=== PATIENT | male | born 1955 | race Caucasian/White ===

== ENCOUNTER 2016-06-17 20:02 | Inpatient (IN) | payer OTHER ==
[~2016-06-17] VITALS: Ht 170.2 cm; Wt 92.1 kg
--- NOTE | ~2016-06-17 | H ---
[facility] [place] [address] HISTORY AND PHYSICAL Name: MIKE KELLEY Room #: 424-P [facility] IN M.R.#: [id number] Admission: 06/17/16 Attend Phys: Bobbi Lamas Discharge: 06/22/16 Date of : 53 Report #: [id number] THIS REPORT FOR: //name// CC: Rogers Guan ATTENDING PHYSICIAN: Torsten Guan MD PRIMARY CARE PHYSICIAN: Duran Hinson DO CHIEF COMPLAINT: Cough, left-sided chest pain, nausea, vomiting, and diarrhea. HISTORY OF PRESENT ILLNESS: The patient is a 60-year-old male who has not been feeling well for about a week. He was in [place], visiting family over [place] and for the last week, he has been having nausea, vomiting, and diarrhea. He has had at least 5-6 episodes of diarrhea per day. He has been vomiting multiple times throughout the day, although he denies any vomiting today. He overall has had decreased appetite and has not been eating well for about 4-5 days. He says he was still drinking water. He has also developed some increasing shortness of breath and left-sided chest pain. The chest pain is worse with taking deep breath. The pain radiates into his left upper quadrant of the abdomen. He also has been coughing frequently and produced some yellowish colored sputum, but at times, he has seen some dark blood in the sputum. He went to an urgent care in [place] and was diagnosed with pneumonia and put on a Z-Hector last week. He just finished the Z-Hector today. He did drive to [place] in back. He does have a history of DVT, but has been off anticoagulation for many years. Since arrival in the ER, he has been hypotensive, although he has remained alert and oriented. Despite being feeling so poorly, he has continued to take his lisinopril daily. He denies any history of kidney problems. He has been receiving fluid boluses in the ER and has just been started on a small amount of Levophed. PAST MEDICAL HISTORY: Hypertension, coronary artery disease with prior [place], hyperlipidemia, depression, PVD, and DVT. PAST SURGICAL HISTORY: Bilateral iliac bypass with bilateral iliac stents, CABG x3 vessels in 2000, left subclavian stent placement and angioplasty, left femur fracture repair followed by a dino removal and left carotid endarterectomy. ALLERGIES: None. HOME MEDICATIONS: Lisinopril 20 mg daily and aspirin 325 mg daily. SOCIAL HISTORY: The patient smokes about half a pack of cigarettes per day. He has been smoking for at least 30 years. He drinks beer daily up to 2-3 cans per [facility] [address] [place] [address] HISTORY AND PHYSICAL Name: MIKE KELLEY Room #: 424-P [facility] IN ..#: [id number] Admission: 06/17/16 Attend Phys: Bobbi Lamas Discharge: 06/22/16 Date of : 53 Report #: [id number]. He denies any drug use. FAMILY HISTORY: Noncontributory. REVIEW OF SYSTEMS: Twelve-point review of systems was reviewed with the patient, otherwise negative unless stated in the HPI. PHYSICAL EXAMINATION: GENERAL: The patient is an alert male, in no acute distress. VITAL SIGNS: Temperature is 36.9, heart rate is 82, respirations 22, blood pressure is 70/57, and oxygen 97% on room air. HEENT: PERRLA. Sclerae is nonicteric. Oral mucosa is pink and dry. Tongue, no saliva. He is edentulous. NECK: Supple, no JVD noted. CARDIOVASCULAR: Normal S1 and S2. No murmurs, rubs or gallops. RESPIRATORY: Breath sounds are clear in bilateral upper lobes. He is diminished in the left lower lobe and he is tender to palpation on the left anterior chest wall. Breathing is nonlabored. ABDOMEN: Soft and diffusely tender, but is worse along the left side in the left upper and lower quadrants. Bowel sounds are hyperactive. VASCULAR: No edema noted. Pedal pulses are 2+. GENITOURINARY: He just had a Mendosa catheter placed. He is draining a small amount of jose angel urine. NEUROLOGIC: The patient is alert. He is oriented x3. Speech is clear. He does answer questions appropriately and is following commands. No focal weakness noted. SKIN: Intact. No rashes or lesions. His face is very flushed. LABORATORY AND DIAGNOSTIC DATA: WBC is 9.7, hemoglobin 14.2, and platelets 265. Sodium 126, potassium 3.5, BUN 46, creatinine 3.6, and glucose 109. Lactic acid is 1.7, AST 57, and ALT 110. Troponins negative. BNP 304. Albumin 2.2. INR 1.1 and D-dimer 3.17. EKG showing sinus rhythm with PAC. Chest x-ray shows a mass-like density in the left lower lobe. If infectious presentation, pneumonia is a consideration. Followup chest radiographs to be performed. CT of the chest, abdomen, and pelvis done without contrast shows multifocal infiltrate concerning for pneumonia, follow up to resolution. There is also diffuse colonic wall thickening and nondilated fluid filled loops of small and large bowel, correlate for enterocolitis. V/Q scan shows high probability for pulmonary embolus with large perfusion defects in the left lower lobe as well as a defect in the left upper lobe. These findings may also represent pulmonary infarct. ASSESSMENT AND PLAN: 1. Pulmonary embolism versus multifocal pneumonia. Interestingly, the patient is not hypoxic or tachycardic. He is afebrile without leukocytosis. Pulmonary embolism cannot be completely ruled out based on the V/Q scan findings. We will [facility] [address] [place] [address] HISTORY AND PHYSICAL Name: MIKE KELLEY Room #: 424-P [facility] IN [facility].#: [id number] Admission: 06/17/16 Attend Phys: Bobbi Lamas Discharge: 06/22/16 Date of : 53 Report #: [id number] need to continue treatment with heparin drip. This is provoked as he recently drove from [place]. We will check venous Dopplers of the lower extremities to rule out deep venous thrombosis. As far as pneumonia, continue with Levaquin and Zosyn. Infectious disease has been consulted by the ER. Follow blood cultures and try to obtain a sputum culture and pulmonary is consulted. 2. Acute renal failure. The patient is very dehydrated likely due to recent nausea, vomiting, and diarrhea. Continue with aggressive IV fluids and follow labs. Renal has been consulted. 3. Hypotension. Interestingly, the patient has a history of a left subclavian stent and steal syndrome. His blood pressures are varying from the right arm to the left arm. On the right arm, he is significantly higher than the left. Based on his hypotension, he has already received a total of 3 liters of IV fluids and his blood pressure has been stable. His blood pressures have been improving. He is Levophed. 4. Hyponatremia, likely due to dehydration. Continue with IV fluids and follow labs. 5. Enterocolitis. The patient has had recent nausea, vomiting and diarrhea. We will check stool for Clostridium difficile. Continue antiemetics. Continue with hydration and add Flagyl. 6. Alcohol use. We will monitor for any signs of withdrawal as does drink beer daily. 7. Mild transaminitis, possibly due to alcohol abuse. CT of the abdomen did not show any gallbladder thickening or cholelithiasis. 8. Deep venous thrombosis prophylaxis. Continue with heparin drip. We will continue to follow the patient closely throughout the hospitalization and make changes based on clinical status. <ELECTRONICALLY SIGNED> By: CAN Wang 06/25/16 0646 0431 0538 CAN Wang /nt
--- NOTE | ~2016-06-17 | EKG ---
[address] [address] ELECTROCARDIOGRAM REPORT Name: MIKE KELLEY Room #: 245-P ADM IN M.R.#: [id number] Admission: 06/17/16 Attend Phys: Bobbi Lamas Discharge: Date of : 53 Report #: [id number] THIS REPORT FOR: //name// [facility] ED Test Date: 2016-06-17 Test Time: 20:11:01 Pat Name: MIKE KELLEY Department: Room: [facility] Gender: M Pastry Baker: JENIFFER : 1955 Requested By: Anastasia Flowers Order Number: [id number] MD: Samir Delgadillo Measurements Intervals [place] Rate: 91 P: 27 MO: 143 QRS: 31 QRSD: 104 T: 8 QT: 376 QTc: 463 Interpretive Statements Sinus rhythm Atrial premature complex Probable left atrial enlargement No previous ECG available for comparison Electronically Signed On 06-18-2016 11:17:04 KITCHEN ASSISTANT by Samir Delgadillo [email or web address] <ELECTRONICALLY SIGNED> By: Samir Delgadillo MD 06/18/16 1117 10 10 Samir Delgadillo MD /GRAZYNA
--- NOTE | ~2016-06-17 | HC ---
[facility] [place] [address] CONSULTATION Name: MIKE KELLEY Room #: 424-P [facility] IN M.R.#: [id number] Admission: 06/17/16 Attend Phys: Bobbi Lamas Discharge: 06/22/16 Date of : 53 Report #: [id number] THIS REPORT FOR: //name// CC: Rogers Hinson REASON FOR CONSULTATION: Septic shock, pneumonia. IMPRESSION: 1. Pulmonary infiltrate, pneumonia versus pulmonary embolus versus vasculitis. 2. Acute renal failure. 3. Possible pulmonary embolus. 4. Metabolic acidosis. 5. Loose stools with diffuse colonic wall thickening. 6. Elevated D-dimer. 7. Elevated LFTs. 8. History of left carotid endarterectomy with patch angioplasty. 9. History of bypass 2000. 10. History of tobacco use. PLAN: 1. Difficult to distinguish on V/Q scan versus CT whether this is pneumonia and pulmonary embolus. Treat as both. We will check venous Doppler and echocardiogram. In this situation, would not use TPA. 2. With hypertension, we will use sepsis protocol, increase fluids, monitor closely. 3. Usual ICU protocol. 4. Smoking cessation. 5. DuoNeb. 6. ID to see. We will also send stool cultures off. We will follow closely with you. HISTORY OF PRESENT ILLNESS: A 60-year-old male, has been in [place], went to a clinic there, treated as pneumonia with Z-Hector, has had left pleuritic chest pain, was found to be hypotensive here, fluids given, PICC line placed and currently in ICU. The patient relates he feels somewhat better. Mendosa catheter placed. Has not been urinating much, but does have some fluid in catheter now. HOME MEDICATIONS: Include lisinopril, aspirin, Lipitor, Plavix. PAST SURGICAL HISTORY: Includes left carotid and CABG. ALLERGIES: No known. SOCIAL HISTORY: Positive tobacco, positive ETOH. Negative drugs of abuse. [facility] [address] [place] [address] CONSULTATION Name: MIKE KELLEY Room #: [address] [place] [address].#: [id number] Admission: 06/17/16 Attend Phys: Bobbi Lamas Discharge: 06/22/16 Date of : 53 Report #: [id number] FAMILY HISTORY: Colon CA, lung CA. REVIEW OF SYSTEMS: Cough, hemoptysis, discolored sputum, some shortness of breath, abdominal pain, loose stools, no edema, history of DVT, subclavian steal, peripheral vascular disease, hypertension, coronary artery disease, and dyslipidemia. PHYSICAL EXAMINATION: VITAL SIGNS: Temperature in ER 98.4, pulse 82, respirations 24, BP 67/46, currently on Levophed. Awake, alert, flushed. NECK: Trachea midline. Thyroid not enlarged. LUNGS: Coarse bilaterally, left greater than right. HEART: Regular. ABDOMEN: Bowel sounds present. Mildly tender on the left. EXTREMITIES: Show no edema or calf tenderness. LABORATORY DATA: A pH 7.425, pCO2 of 28, pO2 of 80, bicarbonate 18 on room air, lactate 1.24. ProBNP 304. V/Q scan was interesting, perfusion defect on left, mismatch with ventilation. CT chest showed multifocal infiltrate, diffuse colonic wall thickening. INR 1.1. D-dimer 3.17, BUN 46, creatinine 3.6, total bilirubin 1.1, SGPT 110. White count 97, hemoglobin 14.2, platelets 265, bands 1. Forty-five minutes critical care time. <ELECTRONICALLY SIGNED> By: Rogers Kelly MD 06/24/16 1832 0056 0814 Rogers Kelly MD /nt
--- NOTE | ~2016-06-17 | HC ---
[facility] [place] [address] CONSULTATION Name: MIKE KELLEY Room #: 424-P [facility] IN ..#: [id number] Admission: 06/17/16 Attend Phys: Bobbi Lamas Discharge: Date of : 53 Report #: [id number] THIS REPORT FOR: //name// CC: Rogers Hinson DATE OF SERVICE: 06/18/2016 REASON FOR CONSULTATION: Acute kidney injury. HISTORY OF PRESENT ILLNESS: This 60-year-old male has a known history of diffuse atherosclerotic cardiovascular disease. He underwent coronary artery bypass surgery in 2000. He has subsequently undergone numerous additional vascular procedures including carotid endarterectomy in 08/[address] Jones and multiple endovascular stenting procedures including bilateral iliac stents, left subclavian stent. He has had a previous left femur fracture. He has longstanding hypertension, chronic mood disorder, dyslipidemia. ALLERGIES: He has no known allergies. MEDICATIONS ON ADMISSION: Reported as lisinopril 20 mg daily and aspirin 325 mg daily. PERSONAL AND SOCIAL HISTORY: The patient continues to smoke one half pack of cigarettes daily. He drink 2-3 beers per day by report. There is no history of substance abuse. FAMILY HISTORY: Negative for renal disease. REVIEW OF SYSTEMS: Remarkable for the absence of shortness of breath, productive cough, hemoptysis, chest pain, palpitations, nausea. He has had significant diarrhea over the course of the last week and poor oral intake. PHYSICAL EXAMINATION: GENERAL: Reveals a well-developed, well-nourished male appearing his stated age, in no acute distress. VITAL SIGNS: Blood pressure 102/64, pulse 78, respirations 25. SKIN: Warm and dry. Mucous membranes are on the dry side. Turgor is diminished. There are no neck veins visible. HEENT: The head is normocephalic and atraumatic. The sclerae are white and conjunctivae are not injected. There is full range of extraocular motion. NECK: Supple. LUNGS: Samuel reveal scattered rhonchi bilaterally. CARDIOVASCULAR: Reveals a regular rate and rhythm without rub. [facility] [address] [place] [address] CONSULTATION Name: WARRENMIKE H Room #: 424-P [facility] IN .R.#: [id number] Admission: 06/17/16 Attend Phys: Bobbi Lamas Discharge: Date of : 53 Report #: [id number] ABDOMEN: Soft, nontender without guarding, rebound, mass or organomegaly. NEUROLOGIC: Reveals the patient to be alert and cooperative with a nonfocal exam. DIAGNOSTIC DATA: Available at this time include sodium 135, potassium 3.8, chloride 103, CO2 20, BUN 32, creatinine 1.9, glucose 178, calcium 6.9, lipase 904, albumin 1.5. INR 1.2. White blood cell count 6900, hemoglobin 12.2, hematocrit 35.8, platelet count 206,000, 42 bands, 4 lymphocytes, 7 monocytes, 1 eosinophil, 45 polys. Urinalysis reveals clear yellow urine, specific gravity 1.025, pH 5, negative for glucose, ketones, protein, trace blood. Arterial blood gases on initial presentation, pH 7.42, pCO2 28, pO2 80. ASSESSMENT: 1. Renal insufficiency with a creatinine of 3.6 on presentation, which has fallen sequentially to a current value of 1.9. This supports a prerenal etiology for his findings as suggested by his history and current physical examination. We will continue isotonic hydration and follow serial laboratory studies. CT scan of the abdomen and pelvis revealed multifocal pulmonary infiltrates suggestive of pneumonia as well as diffuse colonic wall thickening suggestive of enterocolitis. The kidneys appeared normal on scan with no evidence of hydronephrosis or nephrolithiasis. 2. Pneumonia. 3. Rule out pulmonary emboli. 4. Diffuse atherosclerosis. 5. Ongoing tobacco abuse. PLAN: As outlined above. I discussed with the patient the importance of stopping smoking. Please see orders. <ELECTRONICALLY SIGNED> By: Boby Coleman MD 06/21/16 0703 0920 1255 Boby Coleman MD /nt
--- NOTE | ~2016-06-17 | HC ---
[facility] [address] [place] [address] CONSULTATION Name: MIKE KELLEY Room #: 424-P ADM IN M.R.#: [id number] Admission: 06/17/16 Attend Phys: Bobbi Lamas Discharge: Date of : 53 Report #: [id number] THIS REPORT FOR: //name// CC: Rogers Hinson REASON FOR CONSULTATION: I was asked to evaluate the patient concerning sepsis, pneumonia, pulmonary embolus and colitis. HISTORY OF PRESENT ILLNESS: The patient is a 60-year-old with underlying history of coronary artery disease and peripheral vascular disease who was in [place] visiting family for the last 3 weeks. Five days ago noticed a left-sided chest discomfort associated with some shortness of breath and cough with hemoptysis. He was seen in the outpatient clinic and placed on azithromycin. Subsequently, developed worsening diarrhea associated with some nausea and vomiting and persistent pain in his left chest. He drove back yesterday and presented to the Emergency Room. There, he was hypotensive. Imaging studies showed pulmonary infiltrates in both lungs. I discussed the case with Emergency Room physician. He was given IV fluids, started on Levophed drip, placed on IV antibiotics after cultures were obtained. Overnight, he has been afebrile and hemodynamically improved. He remains on room air with adequate oxygen saturation. He smokes cigarettes, moderate alcohol intake daily, unemployed, no HIV risk factors. ALLERGIES: None. MEDICATIONS: As noted on his MAR with home medications of lisinopril and aspirin. PAST MEDICAL HISTORY: Hypertension, coronary artery disease, peripheral vascular disease, hyperlipidemia, depression. Unclear if he has had a DVT in the past. He was not sure when I questioned him on this. He has had bilateral iliac bypass and iliac stents, coronary artery bypass grafting, left subclavian stent, left carotid endarterectomy, left femur fracture. FAMILY HISTORY: Cancer. SOCIAL HISTORY: Smoker, no tuberculosis exposure, moderate alcohol intake. REVIEW OF SYSTEMS: Noted above with no arthritis, rash, dysuria or frequency. PHYSICAL EXAMINATION: VITAL SIGNS: He is afebrile, CVP of 6, MAP of 79, pulse 87. Systolic blood pressure has been over 100. He is off Levophed drip, remains on a heparin drip. HEENT: Unremarkable. [address] [address] CONSULTATION Name: MIKE KELLEY Room #: [address] [place] [address] [place] .R.#: [id number] Admission: 06/17/16 Attend Phys: Bobbi Lamas Discharge: Date of : 53 Report #: [id number] NECK: Supple. LUNGS: Crackles in the left base posteriorly. No rub. HEART: Regular without murmur. ABDOMEN: Soft, diffusely tender, no hepatosplenomegaly or mass. EXTREMITIES: Unremarkable. NEUROLOGIC: Nonfocal. LABORATORY STUDIES: Sodium 135, potassium 3.8, bicarbonate 20, creatinine 1.9 down from 3.6 on admission, blood glucose 178, AST 43, ALT 83, bilirubin 1, albumin 1.5, lactate normal, troponin negative. INR 1.2. White count 6.9, hemoglobin 12, platelet count 206,000, 42% bands. C. diff by PCR is pending. Procalcitonin 1. ABG on room air pO2 80, pCO2 27, pH 7.42. Blood, urine and sputum cultures are pending. Reviewed his imaging studies including CT scan of the chest and abdomen which showed multifocal infiltrate, pneumonia, mostly peripheral, diffuse colonic wall thickening. VQ scan with high probability of pulmonary embolus. Lower extremity venous ultrasound, no evidence of DVT. IMPRESSION: A 60-year-old with a history of peripheral vascular disease, coronary artery disease, has developed bilateral more peripheral pulmonary infiltrates with a high probability VQ scan. He has had pleuritic type chest pain along with hemoptysis. He was then placed on antibiotics and now has evidence of colitis. I am suspecting that this is a pulmonary process with emboli versus vasculitic change. I agree with anticoagulation and vasculitic workup. I would expect primary bacterial pneumonia less likely given the patient had no prodrome of cough, fever or chills. He now presents dehydrated and with colitis. PLAN: Would recommend stool studies for bacteria culture, C. difficile PCR, await blood and sputum cultures. Continue fluid resuscitation. We will adjust his antibiotics and continue workup for vasculitis and hypercoagulable state. <ELECTRONICALLY SIGNED> By: Quentin Chairez MD 06/21/16 1022 1107 1843 Quentin Chairez MD /nt
--- NOTE | ~2016-06-17 | 2DMMODE ---
[facility] [place] [address] 2 D/M-MODE ECHOCARDIOGRAM Name: MIKE KELLEY Room #: 245-P [facility]#: [id number] Admission: 06/17/16 Attend Phys: Bobbi Oglesby Discharge: Date of : 53 Date of Service: 06/18/1618 Report #: [id number] THIS REPORT FOR: //name// Transthoracic Echocardiography Ordering physician: Rogers Kelly Referring physician: Rogers Kelly [employer] Tavern Keeper: Zeny Murdock Indications/History: Pulmonary HTN, Short of breath, chest pain. Hx: HTN, NE, CABG, tobacco abuse. BP: 110 / HR: 84bpm Height: 67in Weight: 219.5lb 65 Study data: M-mode, complete 2D, complete spectral Doppler, and color Doppler. Location: Bedside. Routine. Image quality was fair. Intravenous contrast (Definity) was administered. Suboptimal apical images. Poor acoustic windows due to body habitus and lung artifact. 2D measurements Normal Normal LVID ED 45.6mm 36-57 IVS ED 9.5mm 6-11 LVID ES 31.6mm 23-40 LVPW ED 10.1mm 6-11 LA volume 20ml/m2 16-28 AoRoot diam 34.7mm 21-37 index ED LVOT diameter 22mm 18-23 Findings: Left ventricle: The cavity size was normal. Wall thickness was normal. Systolic function was normal. The estimated ejection fraction was in the range of 55% to 60%. Wall motion abnormalities are not suspected. Right ventricle: Poorly visualized. The cavity size was normal. Systolicappears normal. Right atrium: The atrium was normal in size. Left atrium: The atrium was normal in size. Volume index: 20ml/m2 (S). Aortic valve: Mildly thickened leaflets. Doppler: There [facility] [address] [place] [address] 2 D/M-MODE ECHOCARDIOGRAM Name: MIKE KELLEY Room #: 245-P [facility] IN [place].#: [id number] Admission: 06/17/16 Attend Phys: Bobbi Greenberg Reny Discharge: Date of : 53 Date of Service: 06/18/16 0818 Report #: [id number] was no stenosis. No regurgitation. Peak velocity: 156.3cm/s (S). Mitral valve: Structurally normal valve. Doppler: There was no evidence for stenosis. No regurgitation. Peak E-wave velocity: 75.3cm/s. Peak gradient: 2.3mm Hg (D). Peak A-wave velocity: 95.8cm/s. Tricuspid valve: Structurally normal valve. Doppler: There was no evidence for stenosis. Mild regurgitation. Regurgitant peak velocity: 305.8cm/s. Peak RV-RA gradient: 37mm Hg (S). Pulmonic valve: Structurally normal valve. Doppler: There was no evidence for stenosis. Trivial regurgitation. Pericardium: There was no pericardial effusion. Aorta: Aortic root: The aortic root was normal in size. Pulmonary artery: Systolic pressure was estimated to be 37mm Hg plus the right atrial pressure. Diastolic function: Doppler parameters are consistent with abnormal left ventricular relaxation (grade 1 diastolic dysfunction). Systemic veins: Inferior vena cava: Poorly visualized. Conclusions 1. Left ventricle: The cavity size was normal. Wall thickness was normal. Systolic function was normal. The estimated ejection fraction was in the range of 55% to 60%. 2. Aortic valve: Mildly thickened leaflets. No regurgitation. 3. Mitral valve: Structurally normal valve. 4. Pulmonic valve: Trivial regurgitation. 5. Tricuspid valve: Mild regurgitation. 6. Pulmonary arteries: Systolic pressure was estimated to be 37mm Hg plus the right atrial pressure. <ELECTRONICALLY SIGNED> By: Sammy Joiner MD 06/18/161599 0818 99 Sammy Joiner MD /adair
[~2016-06-17 20:02] MED LIST: ASPIRIN325 PO; ATORVASTATIN CA40 MG PO; BAYER ASPIRIN325 M1 PO; LOPRESSOR25 PO; NOHOMEMEDICATIONS; PLAVIX 75 MG TA75 MG PO; ZOCOR 20 MG TAB20 M1 PO
[2016-06-17 20:03] VITALS: BP 70/57
[2016-06-17] MEDS ORDERED: LISINOPRIL20 MG PO (20:07)
[2016-06-17 20:24] LABS: HEMATOCRIT 41.8 % (42.0-52.0); HEMOGLOBIN 14.2 gm/dL (14.0-18.0); MCH 31.3 pg (26.0-34.0); MCV 92.2 fL (80.0-100.0); PLATELET COUNT 265 thou/uL (150-400); RBC 4.53 mil/uL (4.50-6.00); RDW 13.7 % (10.5-14.5); WBC 9.7 thou/uL (4.0-11.0)
[2016-06-17 20:26] LABS: MANUAL DIFF YES
[2016-06-17 20:34] LABS: ANION GAP 11 mmol/L (7-16); BUN 46 mg/dL (7-18); CALCIUM 8.7 mg/dL (8.5-10.1); CHLORIDE 90 mmol/L (98-107); CO2 25 mmol/L (21-32); CREATININE 3.6 mg/dL (0.6-1.3); GLUCOSE 109 mg/dL (70-99); POTASSIUM 3.5 mmol/L (3.5-5.1); SODIUM 126 mmol/L (136-145)
[2016-06-17 20:41] LABS: ABSOLUTE NEUTROPHILS 7.5 thou/uL (1.4-8.2); TOTAL CELL COUNT 100
[2016-06-17 20:42] LABS: ALBUMIN 2.2 g/dL (3.4-5.0); ALKALINE PHOSPHATASE 114 U/L (46-116); DIRECT BILIRUBIN 0.7 mg/dL (<0.1-0.3); SGOT 57 U/L (15-37); SGPT 110 U/L (30-65); TOTAL BILIRUBIN 1.1 mg/dL (<0.1-1.0); TOTAL PROTEIN 6.5 g/dL (6.4-8.2); TROPONIN-I < 0.04 ng/mL (<0.04-0.07)
[2016-06-17 21:50] LABS: APTT 30.7 Seconds (24.5-32.8); INR 1.1; PROTIME 11.6 Seconds (9.3-11.4)
[2016-06-17 22:15] VITALS: BP 66/42
[2016-06-17 23:34] VITALS: BP 60/49
[2016-06-17 23:45] VITALS: BP 59/41
[2016-06-18] VITALS (67 sets, daily range): BP systolic 75–155; BP diastolic 52–126
[2016-06-18 00:27] LABS: ABG SAMPLE TYPE VENOUS; BE(vivo) -9.1 mmol/L (-2 to +3); HCO3 14.5 mmol/L (22.0-26.0); LACTATE 0.88 mmol/L (0.5-2.0); O2(CT) 10.5 mL/dL (15.0-23.0); O2Hb VENOUS 69.5 (65.0-85.0); PO2 VENOUS 38.7 mmHg (35.0-45.0); STICK SITE LINE; sO2 VENOUS 73.6 % (65.0-85.0); tCO2 15.3 mmol/L (24.0-30.0)
[2016-06-18 00:28] LABS: ABG COMMENT VBG #1
[2016-06-18 00:30] LABS: ABG COMMENT ROOM AIR; ABG SAMPLE TYPE ARTERIAL; BE(vivo) -5.2 mmol/L (-2 to +3); HCO3 17.8 mmol/L (22.0-26.0); LACTATE 1.24 mmol/L (0.5-2.0); O2(CT) 17.1 mL/dL (15.0-23.0); O2Hb 94.9 % (92.0-98.0); PCO2 27.7 mmHg (35.0-45.0); PO2 80.2 mmHg (80.0-100.0); STICK SITE R.RADIAL; pH 7.425 (7.360-7.450); sO2 96.3 % (92.0-98.0); tCO2 18.6 mmol/L (24.0-30.0)
[2016-06-18 01:27] LABS: ABG SAMPLE TYPE VENOUS; BE(vivo) -4.8 mmol/L (-2 to +3); HCO3 19.7 mmol/L (22.0-26.0); LACTATE 1.08 mmol/L (0.5-2.0); O2(CT) 10.9 mL/dL (15.0-23.0); O2Hb VENOUS 61.6 (65.0-85.0); PCO2 VENOUS 35.1 mmHg (41.0-51.0); PO2 VENOUS 33.9 mmHg (35.0-45.0); sO2 VENOUS 63.8 % (65.0-85.0); tCO2 20.8 mmol/L (24.0-30.0)
[2016-06-18 01:28] LABS: STICK SITE LINE
[2016-06-18 01:42] LABS: HEMATOCRIT 36.3 % (42.0-52.0); MCHC 32.9 % (28.0-37.0); MCV 94.2 fL (80.0-100.0); PLATELET COUNT 218 thou/uL (150-400); RBC 3.85 mil/uL (4.50-6.00); RDW 13.2 % (10.5-14.5); WBC 8.4 thou/uL (4.0-11.0)
[2016-06-18 01:45] LABS: HEMOGLOBIN 11.9 gm/dL (14.0-18.0)
[2016-06-18 01:46] LABS: MANUAL DIFF YES
[2016-06-18 01:49] LABS: URINE BILIRUBIN 1+ (Negative); URINE BLOOD TRACE (Negative); URINE COLOR YELLOW; URINE GLUCOSE-RANDOM* NEGATIVE (Negative); URINE KETONES NEGATIVE (Negative); URINE NITRITE NEGATIVE (Negative); URINE PROTEIN (DIPSTICK) NEGATIVE (Negative); URINE SPECIFIC GRAVITY 1.025 (1.003-1.035); URINE UROBILINOGEN 0.2 E.U./dl (0.2-1.0)
[2016-06-18 01:55] LABS: ICTOTEST (BILI CONFIRMATORY) Positive (Negative)
[2016-06-18 01:57] LABS: ALBUMIN 1.5 g/dL (3.4-5.0); POTASSIUM 3.3 mmol/L (3.5-5.1); TOTAL PROTEIN 4.7 g/dL (6.4-8.2)
[2016-06-18 01:59] LABS: CALCIUM 6.7 mg/dL (8.5-10.1); CREATININE 2.4 mg/dL (0.6-1.3)
[2016-06-18 02:32] LABS: ABG SAMPLE TYPE VENOUS; BE(vivo) -7.7 mmol/L (-2 to +3); HCO3 16.7 mmol/L (22.0-26.0); LACTATE 0.97 mmol/L (0.5-2.0); O2(CT) 13.5 mL/dL (15.0-23.0); O2Hb VENOUS 73.8 (65.0-85.0); PCO2 VENOUS 31.1 mmHg (41.0-51.0); PO2 VENOUS 41.7 mmHg (35.0-45.0); STICK SITE LINE; sO2 VENOUS 75.5 % (65.0-85.0); tCO2 17.7 mmol/L (24.0-30.0)
[2016-06-18 03:15] LABS: ABSOLUTE NEUTROPHILS 6.7 thou/uL (1.4-8.2); ATYPICAL LYMPHS 1 %; TOTAL CELL COUNT 100
[2016-06-18 03:16] LABS: LARGE PLATELETS RARE
[2016-06-18 03:26] LABS: ABG SAMPLE TYPE VENOUS; BE(vivo) -6.4 mmol/L (-2 to +3); HCO3 18.5 mmol/L (22.0-26.0); LACTATE 0.78 mmol/L (0.5-2.0); O2(CT) 12.5 mL/dL (15.0-23.0); PCO2 VENOUS 34.9 mmHg (41.0-51.0); PO2 VENOUS 38.6 mmHg (35.0-45.0); sO2 VENOUS 70.4 % (65.0-85.0); tCO2 19.6 mmol/L (24.0-30.0)
[2016-06-18 03:27] LABS: STICK SITE LINE
[2016-06-18 04:36] LABS: ABG SAMPLE TYPE VENOUS; BE(vivo) -5.1 mmol/L (-2 to +3); HCO3 19.3 mmol/L (22.0-26.0); LACTATE 0.88 mmol/L (0.5-2.0); O2(CT) 13.5 mL/dL (15.0-23.0); O2Hb VENOUS 73.5 (65.0-85.0); PCO2 VENOUS 34.1 mmHg (41.0-51.0); PO2 VENOUS 41.2 mmHg (35.0-45.0); STICK SITE LINE; sO2 VENOUS 75.8 % (65.0-85.0); tCO2 20.4 mmol/L (24.0-30.0)
[2016-06-18 04:50] LABS: CALCIUM 7.1 mg/dL (8.5-10.1); POTASSIUM 3.6 mmol/L (3.5-5.1)
[2016-06-18 04:52] LABS: HEMATOCRIT 35.8 % (42.0-52.0); HEMOGLOBIN 12.2 gm/dL (14.0-18.0); MCH 31.8 pg (26.0-34.0); MCHC 34.1 % (28.0-37.0); MCV 93.2 fL (80.0-100.0); PLATELET COUNT 214 thou/uL (150-400); RBC 3.84 mil/uL (4.50-6.00); RDW 13.5 % (10.5-14.5); WBC 6.9 thou/uL (4.0-11.0)
[2016-06-18 04:55] LABS: INR 1.2; PROTIME 12.1 Seconds (9.3-11.4)
[2016-06-18 04:58] LABS: MANUAL DIFF YES
[2016-06-18 05:15] LABS: FIBRINOGEN 483.6 mg/dL (210-360)
[2016-06-18 05:32] LABS: ABG COMMENT VBG #6; ABG SAMPLE TYPE VENOUS; BE(vivo) -3.4 mmol/L (-2 to +3); HCO3 21.2 mmol/L (22.0-26.0); LACTATE 0.95 mmol/L (0.5-2.0); O2(CT) 13.3 mL/dL (15.0-23.0); PCO2 VENOUS 36.8 mmHg (41.0-51.0); PO2 VENOUS 40.7 mmHg (35.0-45.0); STICK SITE LINE; sO2 VENOUS 75.3 % (65.0-85.0); tCO2 22.3 mmol/L (24.0-30.0)
[2016-06-18 06:39] LABS: PROMYELOCYTES 1 %; TOTAL CELL COUNT 100; TOXIC GRANULATION 1+
[2016-06-18 08:51] LABS: CALCIUM 6.9 mg/dL (8.5-10.1); CREATININE 1.9 mg/dL (0.6-1.3); POTASSIUM 3.8 mmol/L (3.5-5.1)
[2016-06-18 10:03] LABS: AMYLASE 88 U/L (25-115)
[2016-06-18 10:11] LABS: APTT 73.8 Seconds (24.5-32.8); FIBRINOGEN 601.7 mg/dL (210-360); INR 1.2; PROTIME 12.7 Seconds (9.3-11.4)
[2016-06-18 13:10] LABS: CREATININE 1.6 mg/dL (0.6-1.3); POTASSIUM 3.6 mmol/L (3.5-5.1)
[2016-06-18 13:15] LABS: APTT 55.7 Seconds (24.5-32.8); FIBRINOGEN 522.9 mg/dL (210-360); INR 1.2; PROTIME 12.3 Seconds (9.3-11.4)
[2016-06-18 23:11] LABS: HIV ANTIBODY Non Reactive (Non Reactive)
[2016-06-19 01:06] LABS: HEMATOCRIT 38.1 % (42.0-52.0); HEMOGLOBIN 12.6 gm/dL (14.0-18.0); MCH 31.2 pg (26.0-34.0); MCHC 33.1 % (28.0-37.0); MCV 94.3 fL (80.0-100.0); RBC 4.04 mil/uL (4.50-6.00); RDW 13.6 % (10.5-14.5); WBC 8.8 thou/uL (4.0-11.0)
[2016-06-19 01:14] LABS: ALBUMIN 1.6 g/dL (3.4-5.0); CALCIUM 7.6 mg/dL (8.5-10.1); CREATININE 1.3 mg/dL (0.6-1.3); MAGNESIUM 2.1 mg/dL (1.8-2.4); PHOSPHORUS 2.4 mg/dL (2.5-4.9); POTASSIUM 3.5 mmol/L (3.5-5.1); TOTAL BILIRUBIN 0.8 mg/dL (<0.1-1.0); TOTAL PROTEIN 5.1 g/dL (6.4-8.2)
[2016-06-19 04:00] VITALS: BP 96/60
[2016-06-19 08:08] VITALS: BP 93/59
[2016-06-19 16:51] VITALS: BP 109/64
[2016-06-19 20:00] VITALS: BP 125/81
[2016-06-20 04:00] VITALS: BP 116/76
[2016-06-20 05:50] LABS: HEMATOCRIT 33.9 % (42.0-52.0); HEMOGLOBIN 11.5 gm/dL (14.0-18.0); MCH 31.4 pg (26.0-34.0); MCV 92.5 fL (80.0-100.0); RBC 3.66 mil/uL (4.50-6.00); RDW 13.6 % (10.5-14.5); WBC 7.9 thou/uL (4.0-11.0)
[2016-06-20 06:07] LABS: ALBUMIN 1.6 g/dL (3.4-5.0); CALCIUM 7.4 mg/dL (8.5-10.1); CREATININE 1.1 mg/dL (0.6-1.3); MAGNESIUM 1.9 mg/dL (1.8-2.4); PHOSPHORUS 2.3 mg/dL (2.5-4.9); POTASSIUM 3.3 mmol/L (3.5-5.1)
[2016-06-20 07:39] VITALS: BP 122/80
[2016-06-20 16:47] VITALS: BP 125/89
[2016-06-20 20:00] VITALS: BP 152/95
[2016-06-21 05:44] LABS: PROTIME 20.2 Seconds (9.3-11.4)
[2016-06-21 05:46] LABS: ALBUMIN 1.7 g/dL (3.4-5.0); CALCIUM 7.6 mg/dL (8.5-10.1); MAGNESIUM 1.7 mg/dL (1.8-2.4); PHOSPHORUS 2.3 mg/dL (2.5-4.9); POTASSIUM 3.4 mmol/L (3.5-5.1)
[2016-06-21 05:51] VITALS: BP 147/83
[2016-06-21 05:59] LABS: INR 1.9
[2016-06-21 07:59] VITALS: BP 139/85
[2016-06-21 14:47] LABS: MAGNESIUM 1.6 mg/dL (1.8-2.4); POTASSIUM 3.5 mmol/L (3.5-5.1)
[2016-06-21 17:11] VITALS: BP 138/85
[2016-06-21 20:00] VITALS: BP 136/88
[2016-06-21 21:39] LABS: MAGNESIUM 1.6 mg/dL (1.8-2.4); POTASSIUM 3.3 mmol/L (3.5-5.1)
[2016-06-22 04:00] VITALS: BP 104/88
[2016-06-22 05:25] LABS: HEMATOCRIT 36.9 % (42.0-52.0); HEMOGLOBIN 12.2 gm/dL (14.0-18.0); MCH 30.8 pg (26.0-34.0); MCHC 33.1 % (28.0-37.0); RBC 3.97 mil/uL (4.50-6.00); RDW 13.4 % (10.5-14.5); WBC 8.7 thou/uL (4.0-11.0)
[2016-06-22 05:34] LABS: PROTIME 35.8 Seconds (9.3-11.4)
[2016-06-22 05:38] LABS: INR 3.4
[2016-06-22 06:03] LABS: ALBUMIN 1.8 g/dL (3.4-5.0); MAGNESIUM 1.7 mg/dL (1.8-2.4); PHOSPHORUS 2.8 mg/dL (2.5-4.9); POTASSIUM 3.3 mmol/L (3.5-5.1)
[2016-06-22 08:23] VITALS: BP 132/80
[2016-06-22] MEDS ORDERED: VANCOMYCIN100 MG/ML PO (11:24)
[2016-06-22] MEDS ORDERED: CEFUROXIME250 MG PO (11:24)
[2016-06-22] MEDS ORDERED: COUMADIN 2 MG TA2 M1 PO (11:25)
[2016-06-22 12:01] VITALS: BP 132/80
[2016-06-22 12:09] LABS: GLOMERULR BASEM MEMBRN AB 2 units (0-20)
[2016-06-22 13:11] LABS: INFLUENZA B Negative (Negative); METAPNEUMOVIRUS Negative (Negative)
[2016-06-23 16:12] LABS: c-ANCA <1:20 titer (Neg:<1:20); p-ANCA <1:20 titer (Neg:<1:20)
== END 2016-06-22 15:12 | disposition home or self-care (01) | DRG 871 ==
LOC: ER 20:02 → EROBS 22:17 → ICU 22:17 → 4E 06-18 17:51
PROVIDERS: Emergency Medicine; Hospitalist; Internal Medicine; Internal Medicine Pulmonary Disease; Specialist
PROC: 05HB33Z Insertion of Infusion Device into Right Basilic Vein, Percutaneous Approach (ICD-10-PCS; principal; 2016-06-17)
PROC: B54MZZA Ultrasonography of Right Upper Extremity Veins, Guidance (ICD-10-PCS; 2016-06-17)
DX: A41.9 Sepsis, unspecified organism (principal); J18.1 Lobar pneumonia, unspecified organism; I26.99 Other pulmonary embolism without acute cor pulmonale; J96.90 Respiratory failure, unspecified, unspecified whether with hypoxia or hypercapnia; A04.7 Enterocolitis due to Clostridium difficile; N17.9 Acute kidney failure, unspecified; E87.2 Acidosis; E87.1 Hypo-osmolality and hyponatremia; J90 Pleural effusion, not elsewhere classified; I25.10 Atherosclerotic heart disease of native coronary artery without angina pectoris; F17.210 Nicotine dependence, cigarettes, uncomplicated; I10 Essential (primary) hypertension; I70.90 Unspecified atherosclerosis; E78.5 Hyperlipidemia, unspecified; F32.9 Major depressive disorder, single episode, unspecified; R74.0 Nonspecific elevation of levels of transaminase and lactic acid dehydrogenase [LDH]; E11.51 Type 2 diabetes mellitus with diabetic peripheral angiopathy without gangrene; Z79.899 Other long term (current) drug therapy; Z79.82 Long term (current) use of aspirin; Z98.890 Other specified postprocedural states; I25.2 Old myocardial infarction; Z80.0 Family history of malignant neoplasm of digestive organs; Z80.1 Family history of malignant neoplasm of trachea, bronchus and lung; Z79.2 Long term (current) use of antibiotics; Z87.81 Personal history of (healed) traumatic fracture; Z86.718 Personal history of other venous thrombosis and embolism; Z95.1 Presence of aortocoronary bypass graft; Z72.89 Other problems related to lifestyle; Z79.01 Long term (current) use of anticoagulants; Z23 Encounter for immunization
CPT/HCPCS: 10078; 10183; 10783; 27000

== ENCOUNTER → 2018-11-30 | Outpatient (CLI) | payer OTHER ==
[~2018-11-30] MED LIST changes: +ATORVASTATIN CA80 MG PO; +CARVEDILOL12.5 MG PO; +CEFUROXIME250 MG PO; +CLOPIDOGREL75 MG PO; +COUMADIN 2 MG TA2 M1 PO; +LISINOPRIL20 MG PO; +PROTONIX40 M1 PO; +STIOLTO RESPIMAT4 GM INH; +VANCOMYCIN100 MG/ML PO
== END ==
LOC: NUC 08:07
DX: I25.10 Atherosclerotic heart disease of native coronary artery without angina pectoris (principal); I25.2 Old myocardial infarction; F17.200 Nicotine dependence, unspecified, uncomplicated; Z95.5 Presence of coronary angioplasty implant and graft

== ENCOUNTER 2018-12-04 09:06 | Observation (INO) | payer OTHER ==
[~2018-12-04] VITALS: Ht 170.2 cm; Wt 90.7 kg
[~2018-12-04 09:06] MED LIST changes: -ATORVASTATIN CA80 MG PO; -CARVEDILOL12.5 MG PO; -CLOPIDOGREL75 MG PO; -PROTONIX40 M1 PO; -STIOLTO RESPIMAT4 GM INH
[2018-12-04 10:06] LABS: HEMATOCRIT 47.9 % (42.0-52.0); HEMOGLOBIN 16.3 gm/dL (14.0-18.0); MCH 33.2 pg (26.0-34.0); MCV 97.6 fL (80.0-100.0); RBC 4.91 mil/uL (4.50-6.00); RDW 14.1 % (10.5-14.5); WBC 7.4 thou/uL (4.0-11.0)
[2018-12-04 10:11] LABS: CREATININE 1.4 mg/dL (0.7-1.3); POTASSIUM 4.7 mmol/L (3.5-5.1)
[2018-12-04 10:15] VITALS: BP 93/49
[2018-12-04 10:15] LABS: CALCIUM 9.2 mg/dL (8.5-10.1)
[2018-12-04] MEDS ORDERED: CARVEDILOL12.5 MG PO (10:43)
[2018-12-04] MEDS ORDERED: STIOLTO RESPIMAT4 GM INH (10:44)
[2018-12-04] MEDS ORDERED: PROTONIX40 M1 PO (10:44)
--- NOTE | 2018-12-04 16:08 | NUR ---
PT ORIENTED TO ROOM AND UNIT, BED LOW AND LOCKED,, SIDE RAILS UP X3, CALL LIGHT IN REACH. TR BAND RIGHT RADIAL AND WILL DECREAS 2ML AIR Q 15. TELE APPLIED. WILL CONTINUE TO ASSESS.
[2018-12-04 16:38] VITALS: BP 127/67
--- NOTE | 2018-12-04 16:46 | CATHLAB ---
[facility] [place] [address] INVASIVE PROCEDURE REPORT Name: MIKE KELLEY Room #: 219-P [facility]#: [id number] ������������� Admission: 12/04/18 ������������� Attend Phys: Rick Pritchett MD Discharge: ��� ������������� ��� Date of : 53 Date of Service: 12/04/18 1646 �� Report #: [id number] �������� ��������������������������������������������[id number] THIS REPORT FOR: //name// APPROVED REPORT Study performed: 12/04/2018 10:47:52 Patient Details Patient Status: Out-Patient Room #: The patient is a 62 year-old male Event Personnel Rick Pritchett Dinkey Engine Firer/Fireman, Caroline Young RN RN, Laci Miller RN RN, Latonya Cordero RTR, Matt Heard Roberta Monitor Procedures Performed Art Access - R radial artery Left Heart Cath w/or w/o Coronaries 6069920 [facility] [address] w/wo Plasty Single LAD 002003 Hemostasis with Hemoband 22296 Initial Mod Sed Same Phys/QHP Gr5y 478788 57832 Mod Sed Same Phys/QHP Ea 314015 Indication Dyspnea, Positive stress test Risk Factors Hypercholesterolemia, Coronary Artery DiseaseHypertension, Tobacco History () Previous Procedures/Diagnoses Previous CABGPrevious PCI Procedure Narrative The Right Wrist^ was infiltrated with 1% Lidocaine subcutaneous anesthesia. A TRANSRADIAL SLENDER 6F [employer] K[employer] #[id number] sheath was inserted into the Right Radial Artery^. Coronary angiography was performed using coronary diagnostic catheters. The right coronary system was accessed and visualized with a jr4 catheter. The left coronary system was accessed and visualized with a jl4 catheter. Closure device was deployed with a Fr VASC BAND R 24CM #[id number]. Proceedure done through the right radial. Intraoperative Conscious Sedation Sedation start time: 1142 Case end Time: 1249 Fentanyl [address] [address] INVASIVE PROCEDURE REPORT Name: MIKE KELLEY Room #: 219-P [facility]#: [id number] ������������� Admission: 12/04/18 ������������� Attend Phys: Rick Pritchett MD Discharge: ��� ������������� ��� Date of : 53 Date of Service: 12/04/18 1646 �� Report #: [id number] �������� ��������������������������������������������[id number] Fluoro Time: 16.40 minutes Dose: DAP 57799.00 cGycm2 3137 mGy Contrast Type and Amount: Omnipaque 130 ml Coronary Angiography The patient's coronary anatomy is right dominant. Diagnostic Cath Left Main This is a patent vessel, with no flow-limiting lesions. LAD The LAD is a moderate size caliber vessel, traversing the anterior wall and wrapping around the apex. There is a severe, restenotic lesion in the mid segment, 90%. Diagonal 1 This is a patent vessel, with no flow-limiting lesions. Circumflex This is a small to moderate size vessel, supplies 2 obtuse marginal arteries. OM1 There is a moderate stenosis in the proximal segment, 50%. OM2 This is a patent vessel, with no flow-limiting lesions. Right Coronary There is a total occlusion in the proximal segment. R PDA There is a patent right internal mammary artery conduit with an end-to-side anastomosis to the proximal PDA. The ROSETTA graft is patent, with antegrade filling of the PDA. After the anastomosis, there is retrograde filling of the distal RCA and to RPL branches. RPLV Filled via retrograde filling from the ROSETTA graft to the PDA. Left Ventriculography Left Ventriculography was not performed. Ejection Fraction was >55% based off patient's Nuclear Cardiac Stress Test. An LVEDP was measured and there is no gradient across the outflow tract. Hemodynamics The aortic pressure is 155/85 mmHg with a mean of 60 mmHg. The left ventricular pressure is 154/9 mmHg with a mean of mmHg. The left ventricular end diastolic pressure is 25 mmHg. There was no gradient across the aortic valve upon pullback. Pullback from the left ventricle to the aorta revealed no gradient across the aortic valve. PCI Technique Lesion Percutaneous coronary intervention was performed on the mid left [facility] [address] [place] [address] INVASIVE PROCEDURE REPORT Name: MIKE KELLEY Room #: 219-P [facility]..#: [id number] ������������� Admission: 12/04/18 ������������� Attend Phys: Rcik Pritchett MD Discharge: ��� ������������� ��� Date of : 53 Date of Service: 12/04/18 1646 �� Report #: [id number] �������� ��������������������������������������������[id number] anterior descending artery segment. The lesion stenosis prior to intervention was 90% with CHAYITO 3 flow. A ebu 3.0 6f guide Guide Catheter was used to engage the lad ostium. BALLOON DILATION A Balloon catheter Euphora NC RX 2.75 x 20 #[id number] was inserted and inflated up to 12.00atm for 23seconds. Additional Inflation: 12.00atm for 17seconds. Additional Inflation: 14.00atm for 27seconds. STENT DEPLOYMENT A stent RESOLUTE TC RX 2.5 X 30 #[id number] was inserted and inflated up to 12.00atm for 23seconds. POST STENT DEPLOYMENT BALLOON DILATION A Balloon catheter Euphora NC RX 2.75 x 20 #[id number] was inserted and inflated up to santana for 8 F 10seconds. Additional Inflation: santana for 16 F 24seconds. Additional Inflation: santana for 20 F 21seconds. Additional inflations with a Euphoria noncompliant 3.0x12 : 18 F 29, 18 F 21 18 F 10. Final angiography reveals 10 % stenosis with CHAYITO 3 flow. PCI Technique Lesion 2 Percutaneous Coronary Intervention was performed on the mid left anterior descending artery segment. Conclusion 1. Successful placement of a drug-eluting stent into the severe restenotic lesion in the mid LAD. 2. Moderate disease in OM1. 3. Patent ROSETTA graft to the PDA, with retrograde filling of the distal RCA and RPL branches. 4. Recommend dual antiplatelet therapy and aggressive risk factor management. ��������������������������������������������� <ELECTRONICALLY SIGNED> ���������������������������������������� By: Rick Pritchett MD ��������������������������������������������� 12/04/181645 45 45 Rick Pritchett MD /INF
--- NOTE | 2018-12-04 16:48 | NUR ---
INSTRUCTED BY DR. WYNNE TO USE RIGHT ARM TO CHECK BLOOD PRESSURE.
[2018-12-04 20:10] VITALS: BP 125/76
[2018-12-05 00:25] VITALS: BP 141/76
[2018-12-05 03:57] VITALS: BP 125/67
[2018-12-05 04:56] LABS: HEMATOCRIT 44.9 % (42.0-52.0); MCH 32.6 pg (26.0-34.0); MCHC 33.4 g/dL (28.0-37.0); MCV 97.7 fL (80.0-100.0); RBC 4.59 mil/uL (4.50-6.00); RDW 14.3 % (10.5-14.5); WBC 4.5 thou/uL (4.0-11.0)
[2018-12-05 05:12] LABS: ALBUMIN 3.2 g/dL (3.4-5.0); CALCIUM 8.5 mg/dL (8.5-10.1); CREATININE 1.1 mg/dL (0.7-1.3); POTASSIUM 4.4 mmol/L (3.5-5.1); TOTAL BILIRUBIN 0.4 mg/dL (<0.1-1.0); TOTAL PROTEIN 5.9 g/dL (6.4-8.2)
--- NOTE | 2018-12-05 05:34 | NUR ---
A/O X 4.UP INDEPENDENTLY.REFUSED SCD'S.IV FLUIDS DISCONTINUED AT MIDNIGHT.DENIES PAIN.MONITOR SHOWS SINUS RHYTHM.PT IS HOPING TO GO HOME TODAY.RIGHT RADIAL SITE DRESSING IS CLEAN,DRY AND INTACT WITHOUT ANY HEMATOMA OR BLEEDING NOTED.WILL MONITOR AND CONTINUE POC.
--- NOTE | 2018-12-05 07:32 | EKG ---
[address] [address] ELECTROCARDIOGRAM REPORT Name: MIKE KELLEY Room #: 219-P [facility] M.R.#: [id number] ������������������ Admission: 12/04/18 ������������������ Attend Phys: Rick Pritchett MD Discharge: ������������������ Date of : 53 Report #: [id number] ����������������������������������������������������������������� [id number] THIS REPORT FOR: //name// [facility] Test Date: 2018-12-04 Test Time: 10:21:19 Pat Name: MIKE KELLEY Department: Room: 219 Gender: M Dog Control Officer: Martha DOMINGO : 1955 Requested By: Rick Pritchett Order Number: [id number] MD: Bautista Hernandez Measurements Intervals [place] Rate: 56 P: 43 MI: 185 QRS: 44 QRSD: 112 T: 61 QT: 433 QTc: 418 Interpretive Statements Sinus bradycardia Otherwise no significant abnormality Compared to ECG 06/17/2016 20:11:01 Atrial premature complex(es) no longer present Electronically Signed On 12-05-2018 7:31:51 CDT by Bautista Hernandez [email or web address] ��������������������������������������������� <ELECTRONICALLY SIGNED> ���������������������������������������� By: Bautista Hernandez MD, [facility] ��������������������������������������������� 12/05/18 0731 1021 1021 Bautista Hernandez MD, [facility] /EPI
--- NOTE | 2018-12-05 07:34 | EKG ---
[address] [place] [address] ELECTROCARDIOGRAM REPORT Name: MIKE KELLEY Room #: 219-P [facility] M.R.#: [id number] ������������������ Admission: 12/04/18 ������������������ Attend Phys: Rick Pritchett MD Discharge: ������������������ Date of : 53 Report #: [id number] ����������������������������������������������������������������� [id number] THIS REPORT FOR: //name// [facility] Test Date: 2018-12-04 Test Time: 13:26:54 Pat Name: MIKE KELLEY Department: Room: 219 Gender: M Vision Specialist: Martha DOMINGO : 1955 Requested By: Rick Pritchett Order Number: [id number] MD: Bautista Hernandez Measurements Intervals [place] Rate: 61 P: 43 MD: 200 QRS: 46 QRSD: 112 T: 46 QT: 425 QTc: 428 Interpretive Statements Sinus rhythm Poor R wave progression Compared to ECG 06/17/2016 20:11:01 No significant change was found Electronically Signed On 12-05-2018 7:34:08 CDT by Bautista Hernandez [email or web address] ��������������������������������������������� <ELECTRONICALLY SIGNED> ���������������������������������������� By: Bautista Hernandez MD, [facility] ��������������������������������������������� 12/05/18 0734 D: [id number] 25 Bautista Hernandez MD, [facility] /EPI
[2018-12-05 07:39] VITALS: BP 148/77
--- NOTE | 2018-12-05 07:53 | EKG ---
[address] [address] ELECTROCARDIOGRAM REPORT Name: MIKE KELLEY Room #: 219-P [facility].R.#: [id number] ������������������ Admission: 12/04/18 ������������������ Attend Phys: Rick Pritchett MD Discharge: ������������������ Date of : 53 Report #: [id number] ����������������������������������������������������������������� [id number] THIS REPORT FOR: //name// [facility] Test Date: 2018-12-05 Test Time: 07:20:04 Pat Name: MIKE KELLEY Department: Room: 219 Gender: M Commissioned Police Officer: INGRID : 1955 Requested By: Rick Pritchett Order Number: [id number] MD: Bautista Hernandez Measurements Intervals [place] Rate: 61 P: 23 SD: 187 QRS: 35 QRSD: 93 T: 55 QT: 412 QTc: 415 Interpretive Statements Sinus rhythm No significant abnormality Compared to ECG 06/17/2016 20:11:01 No significant change was found Electronically Signed On 12-05-2018 7:53:35 CDT by Bautista Hernandez [email or web address] ��������������������������������������������� <ELECTRONICALLY SIGNED> ���������������������������������������� By: Bautista Hernandez MD, [facility] ��������������������������������������������� 12/05/18 0753 719 9 Bautista Hernandez MD, [facility] /EPI
[2018-12-05] MEDS ORDERED: ATORVASTATIN CA80 MG PO (08:09)
[2018-12-05] MEDS ORDERED: CLOPIDOGREL75 MG PO (08:09)
[2018-12-05 08:29] VITALS: BP 148/77
[2018-12-05 08:34] VITALS: BP 148/77
--- NOTE | 2018-12-05 08:43 | NUR ---
ASSUMED CARE AT SHIFT CHANGE, ALERT AND ORIENTED X4. PATIENT IS ANXIUOS TO GET HOME. VSS AND AFEBRILE. SB AT 59/MIN AND DENIES ANY CP OR DISCOMFORT. DISCHARGE AND MEDICATION INSTRUCTONS GIVEN TO PATEINT AND FAMILY. AND WAITING TO BE DISCHARGED HOME.
--- NOTE | 2018-12-06 10:01 | D ---
[facility] [place] [address] DISCHARGE SUMMARY Name: MIKE KELLEY Room #: 219-P [facility] Chad Billingsley#: [id number] Admission: 12/04/18 ������������������ Attend Phys: Rick Pritchett MD Discharge: 12/05/18 ������������������ Date of : 53 Report #: [id number] THIS REPORT FOR: //name// CC: Rick Hinson DATE OF SERVICE: 12/05/2018 FINAL DIAGNOSES: 1. Coronary artery disease, status post angioplasty. 2. Prior history of coronary artery bypass graft. 3. Hypertension. 4. Hypercholesterolemia. 5. Tobacco use. 6. Gastroesophageal reflux disease. HOSPITAL COURSE: Please see the original H and P for full details. The patient presented with unstable angina, with an abnormal nuclear stress test. Please see the cardiac catheterization report for full details. The left circumflex system is patent with moderate disease in the first obtuse marginal artery. The confederated goshute RCA is occluded. The distal RCA and its branches are filled via a patent right internal mammary artery graft, anastomosed to the PDA. There is a previous stent in the mid segment of the LAD with severe restenosis, undergoing angioplasty and placement of a drug-eluting stent. This was all performed via the right radial artery access. He has remained stable overnight. He will be discharged home and follow up in the office. Again, complete smoking cessation has been advised. FINAL DISPOSITION: Plavix 75 mg daily, aspirin 325 mg daily, Lipitor 40 mg daily, Coreg 12.5 mg twice a day, Protonix 40 mg daily. ��������������������������������������������� <ELECTRONICALLY SIGNED> ���������������������������������������� By: Rick Pritchett MD ��������������������������������������������� 12/06/18 1001 0815 0901 Rick Pritchett MD /nt
== END 2018-12-05 09:13 | disposition home or self-care (01) ==
LOC: 2N 09:06 → CATH 09:06 → 2N 15:33 → CATH 15:34 → 2N 15:34 → ENTRNSPT 12-05 09:03 → EDTRNSPTSTS 12-05 09:05 → 2N 12-05 09:13
PROVIDERS: ADMIT Internal Medicine Cardiovascular Disease
DX: I25.10 Atherosclerotic heart disease of native coronary artery without angina pectoris (principal); Z98.61 Coronary angioplasty status; I10 Essential (primary) hypertension; E78.00 Pure hypercholesterolemia, unspecified; F17.200 Nicotine dependence, unspecified, uncomplicated; K21.9 Gastro-esophageal reflux disease without esophagitis; Z79.899 Other long term (current) drug therapy
CPT/HCPCS: 10081

== ENCOUNTER → 2019-08-21 | Outpatient (CLI) | payer OTHER ==
[~2019-08-21] MED LIST changes: +ATORVASTATIN CA80 MG PO; +CARVEDILOL12.5 MG PO; +CLOPIDOGREL75 MG PO; +PROTONIX40 M1 PO; +STIOLTO RESPIMAT4 GM INH
== END ==
LOC: SJCVC 13:42
DX: I25.10 Atherosclerotic heart disease of native coronary artery without angina pectoris (principal); I10 Essential (primary) hypertension; E78.00 Pure hypercholesterolemia, unspecified; F17.210 Nicotine dependence, cigarettes, uncomplicated; R09.89 Other specified symptoms and signs involving the circulatory and respiratory systems; Z79.82 Long term (current) use of aspirin; Z79.899 Other long term (current) drug therapy; Z95.1 Presence of aortocoronary bypass graft

== ENCOUNTER → 2020-09-24 | Outpatient (CLI) | payer OTHER | LOC: SJCVC 14:31 | PROVIDERS: ATTEND Internal Medicine Cardiovascular Disease | DX: R94.31 Abnormal electrocardiogram [ECG] [EKG] (principal); I25.10 Atherosclerotic heart disease of native coronary artery without angina pectoris; I10 Essential (primary) hypertension; E78.00 Pure hypercholesterolemia, unspecified; I73.9 Peripheral vascular disease, unspecified; E78.5 Hyperlipidemia, unspecified; J44.9 Chronic obstructive pulmonary disease, unspecified; F32.9 Major depressive disorder, single episode, unspecified; Z79.899 Other long term (current) drug therapy; Z79.82 Long term (current) use of aspirin; Z95.1 Presence of aortocoronary bypass graft ==

== ENCOUNTER → 2021-01-19 | Outpatient (CLI) | payer OTHER | LOC: SJCVCIMAG 07:16 | PROVIDERS: ATTEND Internal Medicine Cardiovascular Disease | DX: I70.202 Unspecified atherosclerosis of native arteries of extremities, left leg (principal); I49.3 Ventricular premature depolarization; I65.23 Occlusion and stenosis of bilateral carotid arteries; I25.10 Atherosclerotic heart disease of native coronary artery without angina pectoris; I10 Essential (primary) hypertension; E78.00 Pure hypercholesterolemia, unspecified; J44.9 Chronic obstructive pulmonary disease, unspecified; R06.09 Other forms of dyspnea; E78.5 Hyperlipidemia, unspecified; F17.200 Nicotine dependence, unspecified, uncomplicated; Z79.899 Other long term (current) drug therapy; Z79.82 Long term (current) use of aspirin; Z72.89 Other problems related to lifestyle; Z95.1 Presence of aortocoronary bypass graft; Z98.61 Coronary angioplasty status ==

== ENCOUNTER 2021-01-26 12:44 | Observation (INO) | payer OTHER ==
[2021-01-26] VITALS (14 sets, daily range): BP systolic 90–144; BP diastolic 51–83
[~2021-01-26] VITALS: Ht 170.2 cm; Wt 99.3 kg
[2021-01-26 08:53] LABS: HEMATOCRIT 42.5 % (42.0-52.0); HEMOGLOBIN 14.1 gm/dL (14.0-18.0); MCH 33.5 pg (26.0-34.0); MCHC 33.1 g/dL (28.0-37.0); MCV 101.2 fL (80.0-100.0); RBC 4.2 mil/uL (4.50-6.00); RDW 13.9 % (10.5-14.5); WBC 7.4 thou/uL (4.0-11.0)
[~2021-01-26 12:44] MED LIST changes: +IMDUR 30 MG TAB30 M1 PO; +LIPITOR80 MG PO; +PROAIR HFA8.5 GM INH
--- NOTE | 2021-01-26 15:18 | CATHLAB ---
[facility] [place] [address] INVASIVE PROCEDURE REPORT Name: MIKE KELLEY Room #: 210-P [facility] IN M.R.#: [id number] Admission: 01/26/21 Attend Phys: Rick Pritchett MD Discharge: Date of : 53 Report #: [id number] THIS REPORT FOR: cc: Duran Hinson Kent DO [place],Rick Duarte MD ~ APPROVED REPORT Study performed: 01/26/2021 08:19:11 Patient Details Patient Status: Out-Patient Room #: 210 The patient is a 65 year-old male Event Personnel Rick Pritchett [employer] Superintendent, Tami Hall RN RN, Jacqueline Cummings RTR ScrubGil Nancy RTR, DIRECTOR OF EXHIBITS Monitor, Francy Avendano RN human services care specialist Performed Art Access - R femoral artery* Left Heart Cath Coronaries, Bypass Grafts [id number] [facility] [address] Place w/wo Plasty Single OM 956926 FFR 1208813 FFR Indication Dyspnea, Positive stress test, Chest pain Risk Factors Obesity, Peripheral Vascular Disease, Hypercholesterolemia, Coronary Artery DiseaseHypertension, Tobacco History () Previous Procedures/Diagnoses Previous CABGPrevious PCI Procedure Narrative The Right Groin^ was infiltrated with 1% Lidocaine subcutaneous anesthesia. A PINNACLE 4FR Sheath #[id number] sheath was inserted into the RFA^. Coronary angiography was performed using coronary diagnostic catheters. The right coronary system was accessed and visualized with a JR4 catheter. The left coronary system was accessed and visualized with a JL4 catheter. The left ventricle was accessed and visualized with a JR4 catheter. Pre-demployment femoral angiogram was performed . Closure device was deployed with a 6 Fr MYNXGRIP 6/7F #[id number]. The patient tolerated the procedure well and there were no [facility] [address] [place] [address] INVASIVE PROCEDURE REPORT Name: MIKE KELLEY [facility] #: 210[facility]#: [id number] Admission: 01/26/21 Attend Phys: Rick Pritchett MD Discharge: Date of : 53 Report #: [id number] complications associated with the procedure. There was no hematoma. FFR wire introduced down LAD. Pre FFR=1.00 iFR=.91 Intraoperative Conscious Sedation No conscious sedation given. Fluoro Time: 19.20 minutes Dose: DAP 33828.46 cGycm2 3928 mGy Contrast Type and Amount: Omnipaque 265 ml Coronary Angiography The patient's coronary anatomy is right dominant. Diagnostic Cath Left Main The left main artery is a large-caliber vessel, patent with no flow-limiting lesions. LAD The LAD is a moderate-sized caliber vessel, traverses the anterior wall and wraps around the apex. There are 2 overlapping stents in the midsegment with moderate restenosis. An IFR was performed at this lesion site. Diagonal 1 This is a moderate-sized caliber vessel, patent with no flow-limiting lesions. Diagonal 2 This is a small caliber vessel, jailed at the lesion site. This is unchanged from prior procedures. Circumflex Supplies 1 OM vessel. OM1 There is a severe obstruction at the ostial/proximal segment, 90%. Right Coronary The RCA is a dominant vessel, occluded in the proximal segment. R PDA There is a patent right internal mammary artery conduit with an end-to-side anastomosis to the PDA. After the anastomosis, there is both retrograde and antegrade filling. RPLV There are multiple RPL branches, adequately filled via retrograde filling from the ROSETTA to the PDA conduit. Left Ventriculography Left Ventriculography was not performed. Ejection Fraction was >55% based off patient's Nuclear Cardiac Stress Test. An LVEDP was measured and there is no gradient across the outflow tract. IVUS Anticoagulation was achieved with Angiomax. Fractional Flow Elmer was performed on the mid left anterior descending artery segment vessel. A 6 F XB 3.5 Guide Catheter was used to engage the LCA ostium. [facility] [address] [place] [address] INVASIVE PROCEDURE REPORT Name: MIKE KELLEY Room #: 210-P [facility] IN M.R.#: [id number] Admission: 01/26/21 Attend Phys: Rick Pritchett MD Discharge: Date of : 53 Report #: [id number] Hemodynamics The aortic pressure is 108/58 mmHg with a mean of 79 mmHg. The left ventricular pressure is 111/5 mmHg with a mean of mmHg. The left ventricular end diastolic pressure is 18 mmHg. PCI Technique Lesion Percutaneous coronary intervention was performed on the first obtuse marginal branch segment. A VISTA 6FR XB 3.5 #879012 Guide Catheter was used to engage the ostium. A Luge Wire .014 x 182CM #[id number] Interventional Guidewire was used to cross the lesion. BALLOON DILATION A Balloon catheter MINI TREK RX 2.0 X 12 #[id number] was inserted and inflated up to 8.00atm for 10seconds. Additional Inflation: 12.00atm for 12seconds. Additional Inflation: 8.00atm for 7seconds. STENT DEPLOYMENT A drug-eluting stent RESOLUTE TC RX 2.25 X 18 #[id number] was inserted and inflated up to 10.00atm for 19seconds. POST STENT DEPLOYMENT BALLOON DILATION A Balloon catheter TREK NC RX 2.5 X 12 #[id number] was inserted and inflated up to 14.00atm for 19seconds. PCI Technique Lesion The lesion stenosis prior to intervention was mid left anterior descending artery segment% with CHAYITO 6 F XB 3.5 flow. A LCA Guide Catheter was used to engage the ostium. PCI Technique Lesion 2 Percutaneous Coronary Intervention was performed on the mid circumflex artery segment. A VISTA 6FR XB 3.5 #618608 Guide Catheter was used to engage the ostium. A Luge Wire .014 x 182CM #[id number] Interventional Guidewire was used to cross the lesion. Balloon Dilation A Balloon catheter MINI TREK RX 2.0 X 12 #[id number] was inserted and inflated up to 10.00atm for 12seconds. Conclusion 1. Successful insertion of a drug-eluting stent into the LCx/OM1 stenosis. 2. There is a patent ROSETTA graft to the distal RCA, with filling of the PDA and RPL branches. 3. There is a borderline restenotic lesion within the mid LAD [address] [address] INVASIVE PROCEDURE REPORT Name: MIKE KELLEY Room #: 210-P [facility] M.R.#: [id number] Admission: 01/26/21 Attend Phys: Rick Pritchett MD Discharge: Date of : 53 Report #: [id number] stents. iFR performed, revealing 0.91. Will follow medically for now. 4. There is normal LV systolic function. 5. Recommend dual antiplatelet therapy and aggressive risk factor management. <ELECTRONICALLY SIGNED> By: Rick Pritchett MD 01/26/21 1518 1518 1518 Rick Pritchett MD /INF
[2021-01-26] MEDS ORDERED: ASPIRIN325 PO (15:41)
[2021-01-27 00:20] VITALS: BP 106/65; BP 112/60
[2021-01-27 02:59] VITALS: BP 112/60
--- NOTE | 2021-01-27 03:07 | NUR ---
ASSUMED CARE OF PT AT 1900, PT IS A/O X 4 ASSESSMENT COMPLETED NOTED. MYNX CLOSURE IS CLEAN, DRY AND INTACT WITHOUT HEMATOMA. PT DENIES PAIN AT THIS TIME, WILL CONTINUE TO WORK TOWARDS PT'S POC.
[2021-01-27 04:50] VITALS: BP 103/54
[2021-01-27 05:20] LABS: HEMATOCRIT 38.6 % (42.0-52.0); MCH 33.6 pg (26.0-34.0); MCHC 33.7 g/dL (28.0-37.0); MCV 99.5 fL (80.0-100.0); RBC 3.88 mil/uL (4.50-6.00); RDW 13.6 % (10.5-14.5); WBC 6.6 thou/uL (4.0-11.0)
[2021-01-27 05:57] LABS: CALCIUM 7.6 mg/dL (8.5-10.1); CREATININE 1.2 mg/dL (0.7-1.3); POTASSIUM 4.3 mmol/L (3.5-5.1)
--- NOTE | 2021-01-27 08:56 | NUR ---
65 year old male with a history of CAD s/p CABG in 2000 and prior stent to the LAD, peripheral vascular disease, hypertension, hypercholesterolemia, COPD, tobacco use, noncompliance and alcohol abuse. The patient presented on 01-26-21 for an elective cardiac catheterization to further evaluate abnormal nuclear stress. The patient was monitored overnight, hemodynamics and rhythm have remained stable. The patient denied any chest pain, shortness of breath, or palpitations. Cardiac rehab was consulted and post procedure instructions given and to follow up with Dr. Pritchett in 2-weeks as scheduled. The patient plans per record to discharge home with his spouse and per assessment the patient was documented as A&O x4 and plan is to discharge home with his spouse Lovely Lr at [phone] and without needs at this time for CM.
[2021-01-27 10:21] VITALS: BP 123/74
--- NOTE | 2021-01-27 10:49 | NUR ---
Patient alert and oriented. Incisional site clean dry and intact. Tolerating normal diet, voiding, and ambulating indepenently. Provided education on smoking cessation and low sodium diet. Discharge education done to include revision to follow up appointment. IV and telemetry box removed.
== END 2021-01-27 11:11 | disposition home or self-care (01) ==
LOC: CATH 12:44 → 2N 12:47
PROVIDERS: ADMIT Internal Medicine Cardiovascular Disease; ATTEND Internal Medicine Cardiovascular Disease
DX: I25.110 Atherosclerotic heart disease of native coronary artery with unstable angina pectoris (principal); I10 Essential (primary) hypertension; E78.00 Pure hypercholesterolemia, unspecified; F17.210 Nicotine dependence, cigarettes, uncomplicated; Z79.899 Other long term (current) drug therapy